=== PATIENT | male | born 1950 | race Caucasian/White ===

== ENCOUNTER → 2016-10-04 | Outpatient (CLI) | payer MEDICARE, OTHER ==
[~2016-10-04] MED LIST: CIPR500T3 PO; FISH7.5C PO; MULT1TAB10 PO; TYLE650T35 PO
--- NOTE | 2016-10-04 14:20 | REP ---
MULTIPARAMETRIC PROSTATE MRI STUDY WITH PRE AND POST GADOLINIUM IMAGING: TECHNIQUE: Using a phased array surface coil, small field of view imaging was acquired using T2-weighted scans in the axial, coronal, and sagittal imaging planes. Small field of view diffusion-weighted sequences are acquired. Small field of view axial T1-weighted scans are acquired dynamically after the intravenous administration of 15 mL of gadolinium. Using a large field of view, the entire pelvis to the level of the aortic bifurcation was imaged using pre-contrast axial T1 and post-contrast axial T1 fat-saturation images. HISTORY: Elevated prostate-specific antigen. Image quality is satisfactory although there is some image degradation on the diffusion weighted sequences. There is no evidence of pelvic adenopathy. No suspicious bone lesions are seen. Prostate measures 6.1 x 4.4 x 3.9 cm for a total volume of 53.2 mL. There are findings compatible with benign prostatic hypertrophy. Seminal vesicles appear unremarkable. Four areas of abnormal signal intensity and enhancement are identified as regions of interest. First in the left transitional zone extending from the base of the apex there is an area of type III enhancement with heterogeneous nonspecific signal on T2-weighted images and diffusion weighted images. There area measures 1.8 x 0.6 x 2.0 cm with a total volume of 1.79 mL. Overall level of suspicion is 3 out of 5 with chemically significant cancer equivocal. Second in the right transitional zone extending from the base to the apex is an area of type III enhancement with heterogeneous significant on both T2 and diffusion weighted images. The area measures 1.8 x 1.1 x 2.6 cm for a total volume of 2.70 mL. Overall level of suspicion is 3 out of 5 with clinically significant cancer equivocal. Third in the left mid and basilar posterior transitional zone is a geographic area of T2 low signal. There is predominantly type I enhancement in this region. The area measures 1.6 x 0.6 x 1.6 cm for a total volume of 1.16 mL. Overall level of suspicion is 2 out of 5 with clinically significant cancer unlikely to be present. Finally in the right mid and basilar medial peripheral zone is a geographic area of low signal on T2-weighted images. Within this region there is type I and type II enhancement. The area measures 1.6 x 0.5 x 1.0 cm for a total volume of 1.01 mL. Overall level of suspicion is 2 out of 5 with clinically significant cancer unlikely to be present. IMPRESSION: Four areas identified as regions of interest in the prostate to be transmitted for MR ultrasound fusion utilization. Signed by Jac Gomez MD 10/04/2016 03:31 P
== END ==
LOC: M RAD 11:06
PROVIDERS: ATTEND Urology
DX: R93.8 Abnormal findings on diagnostic imaging of other specified body structures (principal); R97.20 Elevated prostate specific antigen [PSA]; N40.0 Benign prostatic hyperplasia without lower urinary tract symptoms
CPT/HCPCS: 36415; 72197; 80048; A9576

== ENCOUNTER → 2016-10-04 | Outpatient (CLI) | payer MEDICARE, OTHER ==
[2016-10-04 10:18] LABS: ANION GAP 7 MEQ/L (8-16); BLOOD UREA NITROGEN 15 MG/DL (7-18); CALCIUM LEVEL 9.1 MG/DL (8.8-10.2); CARBON DIOXIDE LEVEL 29 MEQ/L (21-32); CHLORIDE LEVEL 101 MEQ/L (98-107); CREATININE FOR GFR 1.06 MG/DL (0.70-1.30); GLOMERULAR FILTRATION RATE > 60.0 (>49); GLUCOSE, FASTING 91 MG/DL (80-110); POTASSIUM SERUM 4.2 MEQ/L (3.5-5.1); SODIUM LEVEL 137 MEQ/L (136-145)
== END ==
LOC: M LAB 08:46
PROVIDERS: ATTEND Urology
DX: N40.0 Benign prostatic hyperplasia without lower urinary tract symptoms (principal)

== ENCOUNTER → 2016-11-04 | Outpatient (CLI) | payer MEDICARE, OTHER | END | disposition home or self-care (01) | LOC: M SMT PRO 08:18 | PROVIDERS: ATTEND Urology | DX: R97.20 Elevated prostate specific antigen [PSA] (principal); Z53.09 Procedure and treatment not carried out because of other contraindication; I95.9 Hypotension, unspecified ==

== ENCOUNTER → 2016-11-18 | Outpatient (CLI) | payer MEDICARE, OTHER ==
--- NOTE | 2016-11-18 13:09 | REP ---
Prostate sonography: History: Elevated PSA. Sonographic findings: Trans rectal prostate sonography demonstrates unremarkable seminal vesicles. Prostate gland is heterogeneously enlarged with calcifications and cystic changes noted. Glandular dimensions are measured at 5.6 x 3.4 x 6.1 cm with a calculated glandular volume of 61 ml. Transrectal sonographic guidance provided to Dr. Oshea who performed trans rectal ultrasound guided needle biopsy procedure . Signed by Cristobal Olson MD 11/18/2016 12:59 P
== END | disposition home or self-care (01) ==
LOC: M SMT PRO 09:22
PROVIDERS: ATTEND Urology
DX: C61 Malignant neoplasm of prostate (principal); N42.89 Other specified disorders of prostate; N41.8 Other inflammatory diseases of prostate
CPT/HCPCS: 55700; 76872; 76942; G0416

== ENCOUNTER → 2016-12-15 | Outpatient (CLI) | payer MEDICARE, OTHER ==
--- NOTE | 2016-12-15 11:25 | REP ---
PA and lateral chest: There are no comparisons. The lung schmidt are clear. The cardiac size is normal The barrera, mediastinum, and bony thorax are unremarkable. Impression: Negative PA and lateral chest. Signed by Jac Qiu MD 12/15/2016 11:16 A
[2016-12-15 13:57] LABS: MEAN CORPUSCULAR HEMOGLOBIN 32.3 pg (27.0-33.0); MEAN CORPUSCULAR HGB CONC 33.9 g/dl (32.0-36.5); MEAN CORPUSCULAR VOLUME 95.5 fl (80.0-96.0); RED CELL DISTRIBUTION WIDTH 12.8 % (11.5-14.5); WHITE BLOOD COUNT 7.5 10^3/uL (4.0-10.0)
[2016-12-15 14:11] LABS: INR 0.99
[2016-12-15 14:35] LABS: ANION GAP 4 MEQ/L (8-16); BLOOD UREA NITROGEN 14 MG/DL (7-18); CALCIUM LEVEL 8.9 MG/DL (8.8-10.2); CARBON DIOXIDE LEVEL 33 MEQ/L (21-32); CHLORIDE LEVEL 103 MEQ/L (98-107); CREATININE FOR GFR 1.04 MG/DL (0.70-1.30); GLOMERULAR FILTRATION RATE > 60.0 (>49); GLUCOSE, FASTING 85 MG/DL (80-110); POTASSIUM SERUM 5.1 MEQ/L (3.5-5.1); SODIUM LEVEL 140 MEQ/L (136-145)
== END ==
LOC: M SMT 10:49
PROVIDERS: ATTEND Urology
DX: C61 Malignant neoplasm of prostate (principal); Z79.899 Other long term (current) drug therapy

== ENCOUNTER → 2016-12-20 | Outpatient (REF) | payer MEDICARE, OTHER ==
[2016-12-21 14:51] LABS: THYROID PEROXIDASE ANTIBODY < 28.0 U/ML (<60.0)
== END ==
LOC: M LAB REF 12:27
PROVIDERS: ATTEND Internal Medicine
DX: E03.9 Hypothyroidism, unspecified (principal)

== ENCOUNTER 2017-01-10 06:01 | Inpatient (IN) | payer MEDICARE, OTHER ==
--- NOTE | 2017-01-02 19:26 | CR ---
DATE OF CONSULTATION: 01/02/2017 CONSULTATION REPORT FOR: Dr. Abdullahi Oshea REASON FOR CONSULTATION: For surgery scheduled 01/10/2017 at [facility] ([facility]) robotic prostatectomy. Dear Dr. Oshea, Thank you for asking me to see Mr. Sanjay Liao in consultation prior to his robotic prostatectomy scheduled 01/10/2017. As you know, Mr. Liao is a 66-year-old gentleman who has enjoyed good health except for recent diagnosis of prostate cancer. The patient had had an elevated prostate-specific antigen (PSA) and approximately five years ago, he had biopsies which were negative. On establishment with me in the spring, his PSA was again elevated. He was referred to urology. Imaging was done. Biopsies were done. One out 24 was positive for [place] grade 7 prostate cancer. The patient is ready to move forward with surgery. He notes that he had hypertension before his first attempt to have biopsies. He admits that he was anxious at that time as he had had a bad experience with his biopsies five years ago. He also admits that he had not hydrated or eaten anything the morning of the biopsies. The patient has known history of osteoarthritis (OA), degenerative joint disease (DJD) with neck stiffness. He worked as a chiropractor in the past and self-manipulates himself at this time with good results. The patient has extensive sun damage to the skin. He follows with dermatology. He has not had any recent malignancies. The patient is physically very active, exercising by walking at least two miles a day. He has been increasing more recently to be strong and ready for surgery. The patient otherwise denies any fevers or chills, chest pain or shortness of breath. PAST MEDICAL HISTORY: 1. Elevated prostate-specific antigen (PSA), negative biopsies in 2012. 2. Hyperlipidemia. 3. Seborrheic keratosis. 4. Actinic keratosis. 5. Status post bilateral cataract extractions. 6. Subclinical hypothyroidism 2016. 7. Chronic renal insufficiency (CRI) III. 8. Colonic polyps, due for colonoscopy in 2017. 9. Pilonidal cyst surgery. MEDICATIONS: - fish oil 1000 mg daily - multivitamin daily - flaxseed oil 1000 mg daily ALLERGIES: None. SOCIAL HISTORY: He is retired. 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 Never smoked. One beer a day. Exercises regularly. FAMILY HISTORY: Father at 93, had hypertension and diabetes. Mother at 80 and had arthritis. The patient's brother had diverticulitis and required a colostomy. PHYSICAL EXAMINATION: No acute distress. VITAL SIGNS: Weight 171 with a body mass index (BMI) of 24.5. Blood pressure 108/64 with a heart rate of 61. His oxygen saturation is 97%. HEENT: His head is normocephalic. Pupils are equally reactive to light. Conjunctivae are not injected. Sclerae anicteric. Vision grossly normal. He wears eye glasses. His tongue is midline. NECK: Supple. No thyromegaly, jugular venous distention (JVD), carotid bruits, cervical lymphadenopathy. RESPIRATORY: Clear to auscultation, resonant to percussion. CARDIOVASCULAR: Regular rate and rhythm. No murmur, rub, or gallop. ABDOMEN: Normoactive bowel sounds, soft, nontender. GENITOURINARY: Deferred. EXTREMITIES: Some early osteoarthritis (OA) changes of the distal interphalangeal joint (DIP). DERMATOLOGIC: Extensive sun damage with diffuse seborrheic keratosis and moles. NEUROLOGIC: Alert and oriented. Cranial nerves II-XII intact. LABORATORY DATA: In my office 12/20/2016, TSH was 6.97 with a free T4 of 0.87, negative thyroid antibodies. On 10/04/2016 in my office, he had normal metabolic profile. On 08/31/2016, the patient had a total cholesterol of 219 with an LDL of 152. On 02/22/2017, the patient had a normal CBC. EKG today in my office shows normal sinus rhythm, rate of 61, axis of 41, normal AK, QRS, QTc interval, normal R wave progression, early repolarization changes unchanged from previous EKG 02/14/2014. LABORATORY DATA FROM [facility]: 12/15/2016 chest x-ray shows no acute cardiopulmonary disease. From 12/15/2016, UA negative. PT, INR normal. Metabolic profile normal. CBC normal. IMPRESSION: Mr. Sanjya Liao is a 66-year-old gentleman with cardiovascular risk factors positive only for age and mild hyperlipidemia, has no signs or symptoms indicative of cardiovascular ischemia and is felt to be at low risk for cardiovascular complications which can be further minimized by the followin. Hypothyroid, subclinical. Continue to monitor. Recheck as scheduled at the end of February 2017. 2. Hyperlipidemia. He will hold his fish oil and flaxseed 7-10 days before surgical intervention. 3. Chronic renal insufficiency (CRI) III, resolved. Continue healthy diet and exercise. 4. Colonic polyps, due for colonoscopy in 2017. We will delay until completely recovered from surgery and treatments. Thank you very much for this consultation. Please call with questions or concerns.
[~2017-01-10] VITALS: Ht 177.8 cm; Wt 76.7 kg
[2017-01-10] VITALS (7 sets, daily range): BP systolic 116–152; BP diastolic 51–66
[~2017-01-10 06:01] MED LIST changes: -CIPR500T3 PO; -TYLE650T35 PO
[2017-01-10] MEDS ORDERED: LR 1,000 ML IV ONE (06:15)
--- NOTE | 2017-01-10 07:16 | HPE ---
DATE OF ADMISSION: 01/10/2017 HISTORY OF PRESENT ILLNESS: Mr. Liao is a 66-year-old male patient that had an MRI fusion guided prostate biopsy that showed a pathology of a Saman 7 (3+4) in one of the biopsies. DELILAH score is 10. He would like to have therapy for his prostate cancer. CURRENT MEDICATIONS: - multivitamin daily - fish oil 100 mg capsule twice a day - Zhanna-Q two capsules daily PAST MEDICAL HISTORY: Only significant for an elevated PSA. No prostate cancer. PAST SURGICAL HISTORY: 1. Vasectomy. 2. Pilonidal cyst removal. 3. Right knee arthroscopy. 4. MRI fusion biopsy. FAMILY MEDICAL HISTORY: Father is due to congestive heart failure (CHF). Mother is alive and healthy. SOCIAL HISTORY: He does not smoke. Caffeine - one to two cups a day. Exercises daily. He is . ALLERGIES: No known drug allergies. REVIEW OF SYSTEMS: We have reviewed the 12 reviews of system and there are no other symptomatology other than the history of present illness. His vital signs are stable. Weight is 167 pounds. Height 70 inches. PHYSICAL EXAMINATION: He is alert and oriented times three. Skin: Shows no suspicious moles, lesions or wounds. HEENT: Normal. Thorax/Lungs: Respiration movements are symmetrical. No rhonchi, wheezes. No pain at palpation of the thorax. Heart: Strong and regular, no murmurs. Abdomen: Soft, nontender, positive bowel sounds. No flank pain. Extremities: No edema, clubbing or cyanosis. ASSESSMENT: Prostate cancer. 66-year-old male patient who has a [id number] prostate cancer with intermediate risk of a Saman score 7 (3+4) in one biopsy. His 4Kscore also showed an intermediate risk for prostate cancer. We have explained to him about the different treatment options, such as surgery, radical prostatectomy, external beam radiation and seeds. The patient would like to undergo a robotic-assisted radical prostatectomy. He is aware of the different complications related to this type of procedure which are not limited to the following: pain, infection, sepsis, rectal injury, bowel injury, major vessel injury, clots in legs, clots in heart, stroke, incontinence, and erectile dysfunction. The patient is aware of this and has signed the consent form. He is scheduled for surgery on January 10.
[2017-01-10] MEDS ORDERED: METHYLENE BLUE 0.5% (5MG/ML) 10 ML AMP (PROVAYBLUE)(Q9968 PER 1MG) As Ordered ONE (07:19)
[2017-01-10] MEDS ORDERED: GLYCOPYRROLATE INJ 0.2 MG/ML 2 ML VIAL As Ordered ONE (07:23)
[2017-01-10] MEDS ORDERED: ONDANSETRON 4MG/2ML VIAL (J2405) As Ordered ONE (07:23)
[2017-01-10] MEDS ORDERED: NEOSTIGMINE 10 MG/10 ML VIAL (J2710) As Ordered ONE (07:23)
[2017-01-10] MEDS ORDERED: PROPOFOL 200 MG/20 ML VIAL As Ordered ONE (07:23)
[2017-01-10] MEDS ORDERED: dexameTHASONE 4 MG/ML 1ML VIAL (J1100) As Ordered ONE (07:23)
[2017-01-10] MEDS ORDERED: HYDROmorphone HCL 2 MG/ML 1ML VIAL (J1170) As Ordered ONE (07:23)
[2017-01-10] MEDS ORDERED: ROCURONIUM BROMIDE 50 MG/5 ML VIAL/SYRINGE As Ordered ONE (07:23)
[2017-01-10] MEDS ORDERED: MIDAZOLAM INJ 2 MG/2 ML VIAL (J2250) As Ordered ONE (07:24)
[2017-01-10] MEDS ORDERED: fentaNYL 100 MCG/2 ML INJECTION (J3010) As Ordered ONE (07:24)
[2017-01-10] MEDS ORDERED: MEPERIDINE INJ 25 MG/ML VIAL (J2175) IV PRN (11:30)
[2017-01-10] MEDS ORDERED: PERCOCET 5MG/325MG TAB PO PRN (11:30)
[2017-01-10] MEDS ORDERED: ONDANSETRON 4MG/2ML VIAL (J2405) IV PRN ×2 (11:30)
[2017-01-10] MEDS ORDERED: LR 1,000 ML IV SCH (11:30)
[2017-01-10] MEDS ORDERED: oxyCODONE 5MG TAB PO PRN (11:30)
[2017-01-10] MEDS ORDERED: fentaNYL 100 MCG/2 ML INJECTION (J3010) IV PRN (11:30)
[2017-01-10] MEDS ORDERED: MORPHINE 2 MG/ML 1ML SYRINGE IV PRN (11:45)
[2017-01-10 11:55] LABS: MEAN CORPUSCULAR HEMOGLOBIN 32.8 pg (27.0-33.0); MEAN CORPUSCULAR HGB CONC 34.4 g/dl (32.0-36.5); MEAN CORPUSCULAR VOLUME 95.6 fl (80.0-96.0); PLATELET COUNT, AUTOMATED 179 10^3/uL (150-450); RED CELL DISTRIBUTION WIDTH 12.6 % (11.5-14.5)
[2017-01-10 12:17] LABS: ANION GAP 6 MEQ/L (8-16); BLOOD UREA NITROGEN 16 MG/DL (7-18); CALCIUM LEVEL 8.6 MG/DL (8.8-10.2); CARBON DIOXIDE LEVEL 28 MEQ/L (21-32); CHLORIDE LEVEL 103 MEQ/L (98-107); CREATININE FOR GFR 1.16 MG/DL (0.70-1.30); GLOMERULAR FILTRATION RATE > 60.0 (>49); GLUCOSE, FASTING 127 MG/DL (80-110); POTASSIUM SERUM 4.9 MEQ/L (3.5-5.1); SODIUM LEVEL 137 MEQ/L (136-145)
[2017-01-10] MEDS ORDERED: MORPHINE 4 MG/ML 1ML SYRINGE IV PRN (12:46)
[2017-01-10] MEDS: KETOROLAC 30 MG/ML VIAL (J1885) IV SCH ×2 (13:57→21:21)
[2017-01-10] MEDS: ACETAMINOPHEN 650MG ER TAB (TYLENOL ARTHRITIS) PO SCH ×2 (13:57→21:21)
[2017-01-10] MEDS: PANTOPRAZOLE 40MG INJ (PROTONIX) (C9113) IV SCH (13:57)
[2017-01-10] MEDS: KCL 20MEQ IN D5/0.45NS 1000ML 1,000 ML IV SCH ×2 (13:58→21:22)
[2017-01-10] MEDS: CIPROFLOXACIN 500 MG TAB PO SCH (17:52)
[2017-01-11 02:00] VITALS: BP 109/57
[2017-01-11] MEDS: ACETAMINOPHEN 650MG ER TAB (TYLENOL ARTHRITIS) PO SCH ×2 (05:49→14:47)
[2017-01-11] MEDS: CIPROFLOXACIN 500 MG TAB PO SCH (05:50)
[2017-01-11] MEDS: KETOROLAC 30 MG/ML VIAL (J1885) IV SCH ×2 (05:51→14:47)
[2017-01-11 06:00] VITALS: BP 129/69
[2017-01-11 06:31] LABS: MEAN CORPUSCULAR HEMOGLOBIN 32.2 pg (27.0-33.0); MEAN CORPUSCULAR HGB CONC 34.6 g/dl (32.0-36.5); MEAN CORPUSCULAR VOLUME 92.9 fl (80.0-96.0); PLATELET COUNT, AUTOMATED 163 10^3/uL (150-450); RED CELL DISTRIBUTION WIDTH 12.5 % (11.5-14.5); WHITE BLOOD COUNT 10.9 10^3/uL (4.0-10.0)
[2017-01-11 06:59] LABS: ANION GAP 8 MEQ/L (8-16); BLOOD UREA NITROGEN 14 MG/DL (7-18); CALCIUM LEVEL 8.2 MG/DL (8.8-10.2); CARBON DIOXIDE LEVEL 27 MEQ/L (21-32); CHLORIDE LEVEL 102 MEQ/L (98-107); CREATININE FOR GFR 0.98 MG/DL (0.70-1.30); GLOMERULAR FILTRATION RATE > 60.0 (>49); GLUCOSE, FASTING 110 MG/DL (80-110); POTASSIUM SERUM 3.8 MEQ/L (3.5-5.1); SODIUM LEVEL 137 MEQ/L (136-145)
[2017-01-11] MEDS: KCL 20MEQ IN D5/0.45NS 1000ML 1,000 ML IV SCH (08:00)
[2017-01-11] MEDS: PANTOPRAZOLE 40MG INJ (PROTONIX) (C9113) IV SCH (08:04)
--- NOTE | 2017-01-11 14:03 | RO ---
DATE OF PROCEDURE: 01/10/2017 A 66-year-old male patient. PREOPERATIVE DIAGNOSIS: Prostate cancer. POSTOPERATIVE DIAGNOSIS: Prostate cancer. SURGERY PERFORMED: Robotic-assisted radical prostatectomy. SURGEON: Abdullahi Oshea MD MARINE DIESEL MECHANIC: VENITA Lee ESTIMATED BLOOD LOSS: 25 mL. ANESTHESIA: General. COMPLICATIONS: None. HISTORY OF PRESENT ILLNESS: This is a 66-year-old male patient with a clinical stage [id number] prostate cancer, Hitchcock 7, 3+4, and one positive biopsy out of twelve. The patient has consented for a robotic-assisted radical prostatectomy. For this reason, he is having the surgery done today. PROCEDURE DESCRIPTION: In a patient under general anesthesia in supine modified low lithotomy position, after prepping and draping the area of concern, which included the entire genitalia and abdomen, we started by placing an orogastric tube to drain the gastric content and a Regan catheter #[id number], inflated the balloon to 10 mL to drain the bladder. We then proceeded to actually place the patient in a steep Trendelenburg position and did an incision in the midline infraumbilically for about 2 cm vertically. Through this incision, we opened the Retzius space; and with finger dissection, we dissected further the Retzius space. We then placed a balloon space maker, inflated the balloon to actually distend and dissect the Retzius space completely. We then took the space maker balloon and then placed a trocar balloon and inflated the balloon to 40 mL. Through this optic port trocar, we actually passed CO2 to create a working space in the extraperitoneal approach. We placed a #0 handheld robotic-assisted camera to assist in placement of the other ports. The other ports were placed in a fan-shape manner, two 8-mm metallic trocars placed on the right side of the patient 8 cm away from each other and two other trocars placed on the left side of the patient in a fan- shape manner. A 12-mm VersaStep in the midclavicular line and 8 cm away from this one an 8-mm metallic trocar in the anterior axillary line. We then proceeded to dock the robot. On the left arm, we used monopolar scissors, and on the right arm, so we used bipolar PK and a ProGrasp. We then proceeded to actually dissect periprostatic fat and take it off of the prostate, identify the endopelvic fascia and opened the endopelvic fascia from base to apex. We then cut the puboprostatic ligaments and then changed our scissors on the bipolar PK for two needle holders and secured the dorsal vein complex with a CT1 needle and a 0 Vicryl times two. Once this dorsal vein complex was secured, with monopolar scissors, we cut and opened the anterior bladder neck and then deflated the balloon and grabbed the Regan with the third arm and put into traction the prostate anteriorly. This placed into traction the posterior bladder neck. We incised the posterior bladder neck and the posterior detrusor muscle. Once we did this, we landed in the vas deferens and seminal vesicles. We dissected both vas deferens and cut them; and with the third arm, we grabbed them and pulled them anteriorly, this placed into traction, the seminal vesicles. We dissected both left and right seminal vesicles and ligated with Hem-o-loks the seminal vesicle arteries. We then proceeded to grab with the third arm the vas deferens and seminal vesicles tractionning them anteriorly with the third arm. This placed into traction, the posterior Denonvilliers fascia. With monopolar scissors, we incised the posterior Denonvilliers fascia and the posterior Denonvilliers fascia from the prostate with blunt dissection from base to apex. Once this was carried out, with extra-large Hem-o-loks, we secured the prostatic pedicles times two on the left and times two on the right. We then mobilized the prostate completely in an intrafascial approach and dissected the prostate from base to apex. Once the prostate was attached to the dorsal vein complex and only the urethra, with monopolar scissors, we cut the dorsal vein complex and cut the urethra. We then placed the prostate into a 10-mm Endo Catch bag, as well as the periprostatic fat. We then proceeded to reconstruct the posterior Denonvilliers fascia by using a 3-0 V-Loc in a running fashion and then did our ureterovesical anastomosis using double-armed double-needle absorbable barbed suture cold Quill 2-0. We started at 6 o'clock in the bladder neck, outside-in and inside-out in the urethra running it across and tying the knot in the middle. Prior to closing the bladder, we placed a 20-mL Regan catheter and inflated the balloon to 20 mL. We then proceeded to actually take all the needles out and took the third arm out and passed a #15 round drain, Niraj-Ram (JA) drain, which was placed to bulb suction. We then took all the instruments out, undock the robot, took all the trocars out , and extract the specimen in the Endo Catch bag though the midline incision. We then secured the drain with a nylon 3-0 to the skin and place the drain to bulb suction. We then closed the incision of the optiport in the midline with a UR6 0 Vicryl in running fashion and closed every single incision of the skin with 4-0 Monocryl subcuticular stitches. We applied Mastisol, Steri-Strips, Telfa, and Tegaderm on top of each incision site. The patient will pass through recovery and then to the floor. He will have a Regan catheter to gravity 20-Tajik with the balloon inflated to 20 mL and a JA drain to bulb suction. Once he is tolerating a regular diet and ambulating very well, he will be discharged home. Followup at [facility] between 7 and 10 days. There were no complications of surgery. Estimated blood loss (EBL) was 25 mL. MTDD
[2017-01-11] MEDS ORDERED: TYLE650T35 PO (16:19)
[2017-01-11] MEDS ORDERED: CIPR500T3 PO (16:19)
--- NOTE | 2017-01-12 11:51 | DSES ---
DATE OF ADMISSION: 01/10/2017 DATE OF DISCHARGE: 01/11/2017 ADMITTING ATTENDING: Dr. Abdullahi Oshea DISCHARGE ATTENDING: Dr. Abdullahi Oshea SURGERY PERFORMED BY: Dr. Abdullahi Oshea SURGERY PERFORMED ON: 01/10/2017 SURGERY PERFORMED: Robotic assisted radical prostatectomy. COMPLICATIONS: None. SURGEON: Dr. Abdullahi Oshea HISTORY OF PRESENT ILLNESS: This is a 66-year-old male patient that on 01/10/2017 had a robotic assisted radical prostatectomy due to prostate cancer. Clinical stage CT1c Nx Mx, Saman 7 (3+4). The patient consented for this procedure and this was carried out on 01/10/2017 without complication. After this procedure, he was admitted to the hospital. HOSPITALIZATION COURSE: The patient did very well. By postoperative day #1, he was tolerating a regular diet, ambulating very well, pain was controlled with oral pain medications. Urine output was clear and adequate. He was afebrile and hemodynamically stable. No nausea. No vomiting. JA output was very minimal, 30 mL per shift. For this reason, he requested to go home and we agreed upon this. He will go home with the following indications: - ciprofloxacin one tablet by mouth 100 mg twice a day for 10 days - Tylenol 650 mg one tablet by mouth every 8 hours as needed for pain He cannot do heavy weight lifting above 20 pounds. He can followup at [facility] center in 7 to 10 days for removal of the Regan catheter. His pathology has showed a clinical stage CT2c Nx Mx prostate cancer, Saman 7 (4+3). There is a very microscopic R1 margin. We will follow the PSA at 1 month and every 3 months for the first three years and then every 6 months between years 3 and 5. In any case, if the PSA goes above 0.2, at that moment in time we will actually give radiation therapy to the prostate and pelvis.
== END 2017-01-11 17:50 | disposition home or self-care (01) | DRG 708 ==
LOC: M OR 06:01 → M MS5PR 12:00
PROVIDERS: ADMIT Urology; ATTEND Urology
PROC: 0VB34ZZ Excision of Bilateral Seminal Vesicles, Percutaneous Endoscopic Approach (ICD-10-PCS; 2017-01-10)
PROC: 8E0W4CZ Robotic Assisted Procedure of Trunk Region, Percutaneous Endoscopic Approach (ICD-10-PCS; 2017-01-10)
PROC: 0VT04ZZ Resection of Prostate, Percutaneous Endoscopic Approach (ICD-10-PCS; principal; 2017-01-10 07:30)
DX: C61 Malignant neoplasm of prostate (principal); E78.5 Hyperlipidemia, unspecified; Z79.899 Other long term (current) drug therapy; Z98.52 Vasectomy status

== ENCOUNTER → 2017-01-24 | Outpatient (REF) | payer MEDICARE, OTHER ==
[~2017-01-24] MED LIST changes: +CIPR500T3 PO; +TYLE650T35 PO
== END ==
LOC: M SMT 14:40
PROVIDERS: ATTEND Nurse Practitioner Women's Health
DX: C61 Malignant neoplasm of prostate (principal)

== ENCOUNTER → 2017-02-08 | Outpatient (CLI) | payer MEDICARE, OTHER | LOC: M SMT 10:11 | PROVIDERS: ATTEND Nurse Practitioner Women's Health | DX: C61 Malignant neoplasm of prostate (principal) ==

== ENCOUNTER → 2017-02-15 | Outpatient (REF) | payer MEDICARE, OTHER | LOC: M SMT 13:03 | PROVIDERS: ATTEND Urology | DX: Z85.46 Personal history of malignant neoplasm of prostate (principal); Z79.899 Other long term (current) drug therapy | CPT/HCPCS: 81001; 87086; G0463 ==

== ENCOUNTER → 2017-04-21 | Outpatient (REF) | payer MEDICARE, OTHER ==
[2017-04-21 18:41] LABS: APPEARANCE, URINE HAZY (CLEAR); BACTERIA, URINE AUTO NEGATIVE (NEGATIVE); BILIRUBIN, URINE AUTO NEGATIVE (NEGATIVE); BLOOD, URINE BLOOD NEGATIVE (NEGATIVE); COLOR, URINE YELLOW (YELLOW); GLUCOSE, URINE (UA) AUTO NEGATIVE (NEGATIVE); KETONE, URINE AUTO NEGATIVE (NEGATIVE); LEUKOCYTE ESTERASE, URINE AUTO TRACE (NEGATIVE); MUCUS, URINE SMALL (NEGATIVE); NITRITE, URINE AUTO NEGATIVE (NEGATIVE); PROTEIN, URINE AUTO NEGATIVE (NEGATIVE); RBC, URINE AUTO 2 /HPF (0-3); SPECIFIC GRAVITY URINE AUTO 1.023 (1.002-1.035); SQUAMOUS EPITHELIAL CELL UR AU 0 /HPF (0-6); UROBILINOGEN, URINE AUTO 0.2 mg/dL (0.0-2.0); WBC, URINE AUTO 4 /HPF (0-3)
== END ==
LOC: M SMT 17:13
DX: R35.0 Frequency of micturition (principal)
CPT/HCPCS: 81001

== ENCOUNTER → 2017-05-05 | Outpatient (CLI) | payer MEDICARE, OTHER ==
[2017-05-05 14:23] LABS: PROSTATIC SPECIFIC AG MONITOR 0.03 NG/ML (< 4.0)
== END ==
LOC: M SMT 09:57
DX: Z85.46 Personal history of malignant neoplasm of prostate (principal)
CPT/HCPCS: 84153

== ENCOUNTER 2017-08-01 12:50 | Day surgery (SDC) | payer MEDICARE, OTHER ==
[2017-08-01] MEDS ORDERED: LR 1,000 ML IV (13:00)
[2017-08-01] MEDS ORDERED: PROPOFOL 200 MG/20 ML VIAL As Ordered ×3 (13:11→15:28)
[2017-08-01] MEDS ORDERED: LIDOCAINE 2% INJ 100 MG/5 ML SDV (FOR ANES.) As Ordered (13:11)
== END 2017-08-01 15:58 | disposition home or self-care (01) ==
LOC: M OPP 12:50
DX: Z12.11 Encounter for screening for malignant neoplasm of colon (principal); Z86.010 Personal history of colon polyps; Z85.46 Personal history of malignant neoplasm of prostate; E78.5 Hyperlipidemia, unspecified
CPT/HCPCS: G0105

== ENCOUNTER → 2017-08-10 | Outpatient (CLI) | payer MEDICARE, OTHER ==
[2017-08-10 14:26] LABS: PROSTATIC SPECIFIC AG MONITOR 0.04 NG/ML (< 4.0)
== END ==
LOC: M SMT 10:01
DX: Z85.46 Personal history of malignant neoplasm of prostate (principal)
CPT/HCPCS: 84153

== ENCOUNTER → 2017-11-16 | Outpatient (CLI) | payer MEDICARE, OTHER ==
[2017-11-16 18:36] LABS: PROSTATIC SPECIFIC AG MONITOR 0.04 NG/ML (< 4.0)
== END ==
LOC: M SMT 11:05
DX: Z85.46 Personal history of malignant neoplasm of prostate (principal)
CPT/HCPCS: 84153

== ENCOUNTER → 2018-02-19 | Outpatient (CLI) | payer MEDICARE, OTHER ==
[2018-02-19 13:31] LABS: PROSTATIC SPECIFIC AG MONITOR < 0.0 NG/ML (< 4.0)
== END ==
LOC: M SMT 11:27
DX: Z85.46 Personal history of malignant neoplasm of prostate (principal)
CPT/HCPCS: 84153

== ENCOUNTER → 2018-05-22 | Outpatient (CLI) | payer MEDICARE, OTHER ==
[~2018-05-22] MED LIST changes: +FLAX10002 PO
== END ==
LOC: M SMT 11:06
PROVIDERS: ATTEND Nurse Practitioner Women's Health
DX: Z85.46 Personal history of malignant neoplasm of prostate (principal)

== ENCOUNTER → 2018-08-27 | Outpatient (CLI) | payer MEDICARE, OTHER | LOC: M SMT 09:35 | PROVIDERS: ATTEND Nurse Practitioner Women's Health | DX: Z85.46 Personal history of malignant neoplasm of prostate (principal) ==

== ENCOUNTER → 2018-08-29 | Outpatient (REF) | payer MEDICARE, OTHER | LOC: M LAB REF 12:34 | PROVIDERS: ATTEND Internal Medicine | DX: M19.90 Unspecified osteoarthritis, unspecified site (principal) ==

== ENCOUNTER → 2018-12-03 | Outpatient (CLI) | payer MEDICARE, OTHER | LOC: M SMT 10:27 | PROVIDERS: ATTEND Nurse Practitioner Women's Health | DX: Z85.46 Personal history of malignant neoplasm of prostate (principal) ==

== ENCOUNTER → 2019-03-05 | Outpatient (CLI) | payer MEDICARE, OTHER | LOC: M PLALAB 11:10 | PROVIDERS: ATTEND Urology | DX: C61 Malignant neoplasm of prostate (principal) ==

== ENCOUNTER → 2019-06-04 | Outpatient (REF) | payer MEDICARE, OTHER | LOC: M LABSMT 15:45 | PROVIDERS: ATTEND Urology | DX: N40.0 Benign prostatic hyperplasia without lower urinary tract symptoms (principal) ==

== ENCOUNTER → 2019-12-17 | Outpatient (REF) | payer MEDICARE, OTHER ==
[~2019-12-17] MED LIST changes: +ACET650T61 PO; -TYLE650T35 PO
== END ==
LOC: M PLALAB 09:30
PROVIDERS: ATTEND Urology
DX: C61 Malignant neoplasm of prostate (principal)

== ENCOUNTER → 2020-06-18 | Outpatient (REF) | payer MEDICARE, OTHER | LOC: M PLALAB 09:19 | PROVIDERS: ATTEND Urology | DX: C61 Malignant neoplasm of prostate (principal) ==

== ENCOUNTER → 2020-06-19 | Outpatient (REF) | payer MEDICARE, OTHER | LOC: M LAB REF 12:07 | PROVIDERS: ATTEND Internal Medicine | DX: M19.90 Unspecified osteoarthritis, unspecified site (principal) ==

== ENCOUNTER → 2020-12-29 | Outpatient (CLI) | payer MEDICARE, OTHER | LOC: M PLALAB 08:23 | PROVIDERS: ATTEND Urology | DX: C61 Malignant neoplasm of prostate (principal) ==

== ENCOUNTER → 2021-03-22 | Outpatient (CLI) | payer MEDICARE, OTHER | LOC: M PLALAB 13:27 | PROVIDERS: ATTEND Urology | DX: C61 Malignant neoplasm of prostate (principal) ==

== ENCOUNTER → 2021-04-02 | Outpatient (CLI) | payer MEDICARE, OTHER ==
[~2021-04-02] MED LIST changes: +LATA0.0015; +MULTTAB61 PO; +REDCAP4 PO
== END ==
LOC: M ONCR 12:52
PROVIDERS: ATTEND General Practice
DX: C61 Malignant neoplasm of prostate (principal); Z92.3 Personal history of irradiation

== ENCOUNTER → 2021-04-12 | Outpatient (RCR) | payer MEDICARE, OTHER | LOC: M ONCR 10:24 | PROVIDERS: ATTEND General Practice | DX: C61 Malignant neoplasm of prostate (principal) ==

== ENCOUNTER → 2021-05-10 | Outpatient (RCR) | payer MEDICARE, OTHER | LOC: M ONCR 04-16 14:14 | PROVIDERS: ATTEND General Practice | DX: C61 Malignant neoplasm of prostate (principal) ==

== ENCOUNTER → 2021-06-10 | Outpatient (RCR) | payer MEDICARE, OTHER | LOC: M ONCR 05-11 14:39 | PROVIDERS: ATTEND General Practice | DX: C61 Malignant neoplasm of prostate (principal) ==

== ENCOUNTER → 2021-09-03 | Outpatient (CLI) | payer MEDICARE, OTHER ==
[2021-09-03 14:06] LABS: PROSTATIC SPECIFIC AG MONITOR 0.06 NG/ML (< 4.00)
== END ==
LOC: M PLALAB 09:57
PROVIDERS: ATTEND General Practice
DX: C61 Malignant neoplasm of prostate (principal)

== ENCOUNTER → 2021-09-08 | Outpatient (CLI) | payer MEDICARE, OTHER | LOC: M ONCR 14:01 | PROVIDERS: ATTEND General Practice | DX: C61 Malignant neoplasm of prostate (principal); Z90.79 Acquired absence of other genital organ(s); Z92.3 Personal history of irradiation ==

== ENCOUNTER → 2021-12-03 | Outpatient (CLI) | payer MEDICARE, OTHER ==
[~2021-12-03] MED LIST changes: +FISH10005 PO; -FISH7.5C PO
[2021-12-03 14:31] LABS: PROSTATIC SPECIFIC AG MONITOR 0.02 NG/ML (< 4.00)
== END ==
LOC: M PLALAB 10:25
PROVIDERS: ATTEND General Practice
DX: C61 Malignant neoplasm of prostate (principal)

== ENCOUNTER → 2021-12-09 | Outpatient (CLI) | payer MEDICARE, OTHER | LOC: M ONCR 14:29 | PROVIDERS: ATTEND General Practice | DX: C61 Malignant neoplasm of prostate (principal); Z90.79 Acquired absence of other genital organ(s); Z92.3 Personal history of irradiation ==

== ENCOUNTER → 2022-04-24 | Outpatient (CLI) | payer MEDICARE, OTHER ==
[~2022-04-24] MED LIST changes: +ROSU5TAB5
== END ==
LOC: M LABSMTC 09:59
PROVIDERS: ATTEND Anesthesiology
DX: Z01.812 Encounter for preprocedural laboratory examination (principal); Z11.52 Encounter for screening for COVID-19

== ENCOUNTER → 2022-04-29 | Day surgery (SDC) | payer MEDICARE, OTHER ==
[~2022-04-29] VITALS: Ht 177.8 cm; Wt 75.7 kg
[~2022-04-29] MED LIST changes: +LIDOCAINE 2% 100MG/5ML SDV (FOR ANES.) As Ordered ONE; +NS 1,000 ML IV ONE; +propofoL 200 MG/20 ML VIAL As Ordered ONE
[2022-04-29 11:26] VITALS: BP 106/58
== END | disposition home or self-care (01) ==
LOC: M OPP 09:41
PROVIDERS: ATTEND Surgery
DX: Z12.11 Encounter for screening for malignant neoplasm of colon (principal); Z86.010 Personal history of colon polyps; K51.40 Inflammatory polyps of colon without complications; K57.30 Diverticulosis of large intestine without perforation or abscess without bleeding; E78.00 Pure hypercholesterolemia, unspecified; Z79.02 Long term (current) use of antithrombotics/antiplatelets; Z85.46 Personal history of malignant neoplasm of prostate

== ENCOUNTER → 2022-06-06 | Outpatient (CLI) | payer MEDICARE, OTHER ==
[~2022-06-06] MED LIST changes: -LIDOCAINE 2% 100MG/5ML SDV (FOR ANES.) As Ordered ONE; -NS 1,000 ML IV ONE; -propofoL 200 MG/20 ML VIAL As Ordered ONE
== END ==
LOC: M PLALAB 09:44
PROVIDERS: ATTEND Urology
DX: C61 Malignant neoplasm of prostate (principal)

== ENCOUNTER → 2022-06-17 | Outpatient (CLI) | payer MEDICARE, OTHER | LOC: M ONCR 12:55 | PROVIDERS: ATTEND General Practice | DX: C61 Malignant neoplasm of prostate (principal); Z79.899 Other long term (current) drug therapy; Z86.010 Personal history of colon polyps; Z90.79 Acquired absence of other genital organ(s); Z92.3 Personal history of irradiation ==

== ENCOUNTER 2022-10-05 08:00 | Emergency (ER) | payer MEDICARE, OTHER ==
[~2022-10-05] VITALS: Ht 177.8 cm; Wt 74.8 kg
[2022-10-05] MEDS ORDERED: AUGMENTIN 875 MG TAB PO ONE (09:15)
[2022-10-05] MEDS ORDERED: RABIES IMMUNE GLOBULIN 1500 INTERNATIONAL UNIT/5ML VIAL IM.IMMUN ONE (09:25)
[2022-10-05] MEDS ORDERED: RABIES VACCINE HUMAN 2.5 INTERNATIONAL UNITS/ML VIAL IM ONE (09:25)
[2022-10-05] MEDS ORDERED: AMOX875T2 PO (09:42)
[2022-10-05 10:40] VITALS: BP 133/77; TEMP 97; O2SAT 98
== END 2022-10-05 10:51 | disposition home or self-care (01) ==
LOC: M ED 08:00
DX: S61.230A Puncture wound without foreign body of right index finger without damage to nail, initial encounter (principal); W55.51XA Bitten by raccoon, initial encounter; Y92.009 Unspecified place in unspecified non-institutional (private) residence as the place of occurrence of the external cause; Y93.89 Activity, other specified; Y99.8 Other external cause status; Z79.899 Other long term (current) drug therapy

== ENCOUNTER 2022-10-08 06:28 | Emergency (ER) | payer MEDICARE, OTHER ==
[~2022-10-08] VITALS: Ht 177.8 cm; Wt 75.0 kg
[~2022-10-08 06:28] MED LIST changes: +AMOX875T2 PO
[2022-10-08 06:29] VITALS: BP 136/64; TEMP 96.5; O2SAT 98
[2022-10-08] MEDS ORDERED: RABIES VACCINE HUMAN 2.5 INTERNATIONAL UNITS/ML VIAL IM ONE (08:25)
== END 2022-10-08 08:49 | disposition home or self-care (01) ==
LOC: M ED 06:28
DX: Z23 Encounter for immunization (principal); Z20.3 Contact with and (suspected) exposure to rabies

== ENCOUNTER 2022-10-12 06:19 | Emergency (ER) | payer MEDICARE, OTHER ==
[~2022-10-12] VITALS: Ht 177.8 cm; Wt 75.4 kg
[2022-10-12] MEDS ORDERED: RABIES VACCINE HUMAN 2.5 INTERNATIONAL UNITS/ML VIAL IM ONE (06:45)
[2022-10-12 07:09] VITALS: BP 131/63; TEMP 97.5; O2SAT 99
== END 2022-10-12 07:06 | disposition home or self-care (01) ==
LOC: M ED 06:19
DX: Z29.14 Encounter for prophylactic rabies immune globulin (principal); E78.5 Hyperlipidemia, unspecified; Z79.899 Other long term (current) drug therapy

== ENCOUNTER 2022-10-19 06:04 | Emergency (ER) | payer MEDICARE, OTHER ==
[~2022-10-19] VITALS: Ht 177.8 cm; Wt 75.9 kg
[2022-10-19] MEDS ORDERED: RABIES VACCINE HUMAN 2.5 INTERNATIONAL UNITS/ML VIAL IM ONE (06:10)
[2022-10-19 06:18] VITALS: BP 143/69; TEMP 98.6; O2SAT 99
== END 2022-10-19 06:38 | disposition home or self-care (01) ==
LOC: M ED 06:04
DX: Z29.14 Encounter for prophylactic rabies immune globulin (principal); E78.5 Hyperlipidemia, unspecified

== ENCOUNTER → 2022-12-13 | Outpatient (CLI) | payer MEDICARE, OTHER | LOC: M PLALAB 09:03 | PROVIDERS: ATTEND General Practice | DX: C61 Malignant neoplasm of prostate (principal) ==

== ENCOUNTER → 2022-12-20 | Outpatient (CLI) | payer MEDICARE, OTHER | LOC: M ONCR 13:01 | PROVIDERS: ATTEND General Practice | DX: C61 Malignant neoplasm of prostate (principal); Z71.2 Person consulting for explanation of examination or test findings; Z90.79 Acquired absence of other genital organ(s); Z92.3 Personal history of irradiation; Z79.899 Other long term (current) drug therapy ==

== ENCOUNTER → 2023-02-14 | Outpatient (REF) | payer MEDICARE, OTHER ==
[2023-02-14 13:50] LABS: AMORPHOUS SEDIMENT MODERATE (NEGATIVE); APPEARANCE, URINE TURBID (CLEAR); BACTERIA, URINE AUTO NEGATIVE (NEGATIVE); BILIRUBIN, URINE AUTO NEGATIVE (NEGATIVE); BLOOD, URINE BLOOD 2+ (NEGATIVE); COLOR, URINE AMBER (YELLOW); GLUCOSE, URINE (UA) AUTO NEGATIVE (NEGATIVE); KETONE, URINE AUTO NEGATIVE (NEGATIVE); LEUKOCYTE ESTERASE, URINE AUTO TRACE (NEGATIVE); MUCUS, URINE LARGE (NEGATIVE); NITRITE, URINE AUTO NEGATIVE (NEGATIVE); PROTEIN, URINE AUTO 1+ mg/dL (NEGATIVE); RBC, URINE AUTO 19 /HPF (0-3); SPECIFIC GRAVITY URINE AUTO 1.028 (1.002-1.035); SQUAMOUS EPITHELIAL CELL UR AU 0 /HPF (0-6); WBC, URINE AUTO 5 /HPF (0-3)
== END ==
LOC: M LAB REF 13:12
PROVIDERS: ATTEND Internal Medicine
DX: R31.9 Hematuria, unspecified (principal)

== ENCOUNTER → 2023-03-02 | Outpatient (REF) | payer MEDICARE, OTHER ==
[2023-03-02 12:54] LABS: APPEARANCE, URINE HAZY (CLEAR); BACTERIA, URINE AUTO NEGATIVE (NEGATIVE); BILIRUBIN, URINE AUTO NEGATIVE (NEGATIVE); BLOOD, URINE BLOOD 3+ (NEGATIVE); COLOR, URINE YELLOW (YELLOW); GLUCOSE, URINE (UA) AUTO NEGATIVE (NEGATIVE); KETONE, URINE AUTO NEGATIVE (NEGATIVE); LEUKOCYTE ESTERASE, URINE AUTO NEGATIVE (NEGATIVE); MUCUS, URINE SMALL (NEGATIVE); NITRITE, URINE AUTO NEGATIVE (NEGATIVE); PROTEIN, URINE AUTO NEGATIVE (NEGATIVE); RBC, URINE AUTO 38 /HPF (0-3); SPECIFIC GRAVITY URINE AUTO 1.017 (1.002-1.035); SQUAMOUS EPITHELIAL CELL UR AU 0 /HPF (0-6); UROBILINOGEN, URINE AUTO 0.2 mg/dL (0.0-2.0); WBC, URINE AUTO 4 /HPF (0-3)
== END ==
LOC: M SMT 10:27
PROVIDERS: ATTEND Urology
DX: N39.0 Urinary tract infection, site not specified (principal)

== ENCOUNTER → 2023-03-14 | Outpatient (CLI) | payer MEDICARE, OTHER ==
[~2023-03-14] MED LIST changes: +ISOVUE-370 76% 100ML VIAL ONE
== END ==
LOC: M PLAIMG 10:32
PROVIDERS: ATTEND Urology
DX: R31.29 Other microscopic hematuria (principal)
CPT/HCPCS: 74178; Q9967

== ENCOUNTER → 2023-06-12 | Outpatient (CLI) | payer MEDICARE, OTHER ==
[~2023-06-12] MED LIST changes: -ISOVUE-370 76% 100ML VIAL ONE
== END ==
LOC: M PLALAB 07:27
PROVIDERS: ATTEND Urology
DX: C61 Malignant neoplasm of prostate (principal)

== ENCOUNTER → 2023-12-21 | Outpatient (CLI) | payer MEDICARE, OTHER ==
[~2023-12-21] MED LIST changes: +ROSU5TAB40; -ROSU5TAB5
== END ==
LOC: M PLALAB 10:10
PROVIDERS: ATTEND General Practice
DX: C61 Malignant neoplasm of prostate (principal)

== ENCOUNTER → 2024-01-03 | Outpatient (CLI) | payer MEDICARE, OTHER | LOC: M ONCR 10:59 | PROVIDERS: ATTEND General Practice | DX: C61 Malignant neoplasm of prostate (principal); N35.82 Other urethral stricture, female; Z79.899 Other long term (current) drug therapy; Z90.79 Acquired absence of other genital organ(s); Z92.3 Personal history of irradiation ==

== ENCOUNTER → 2024-06-10 | Outpatient (CLI) | payer MEDICARE, OTHER ==
[~2024-06-10] MED LIST changes: -ROSU5TAB40; +ROSU5TAB49
== END ==
LOC: M PLALAB 10:37
PROVIDERS: ATTEND Urology
DX: C61 Malignant neoplasm of prostate (principal)

== ENCOUNTER → 2024-07-24 | Outpatient (REF) | payer MEDICARE, OTHER ==
[2024-07-29 12:23] LABS: LYME TOTAL ANTIBODY CIA <= 0.90 Index (<=0.90)
== END ==
LOC: M LAB REF 18:02
PROVIDERS: ATTEND Internal Medicine
DX: Z79.899 Other long term (current) drug therapy (principal); R53.83 Other fatigue; R53.81 Other malaise

== ENCOUNTER → 2024-07-25 | Outpatient (REF) | payer MEDICARE, OTHER ==
[2024-07-25 19:02] LABS: HEPATITIS B SURFACE ANTIGEN NEGATIVE (NEGATIVE)
[2024-07-25 19:21] LABS: HEPATITIS C VIRUS ABY INDEX 0.05 INDEX (<0.8)
[2024-07-25 19:22] LABS: HEPATITIS B CORE ANTIBODY IGM NEGATIVE (NEGATIVE)
== END ==
LOC: M LAB REF 17:36
PROVIDERS: ATTEND Internal Medicine
DX: R74.01 Elevation of levels of liver transaminase levels (principal)

== ENCOUNTER → 2024-07-26 | Outpatient (CLI) | payer MEDICARE, OTHER | LOC: M PLAIMG 10:13 | PROVIDERS: ATTEND Internal Medicine | DX: R05.9 Cough, unspecified (principal) ==

== ENCOUNTER → 2024-07-29 | Outpatient (REF) | payer MEDICARE, OTHER ==
[2024-07-29 13:51] LABS: APPEARANCE, URINE HAZY (CLEAR); BACTERIA, URINE AUTO NEGATIVE (NEGATIVE); BILIRUBIN, URINE AUTO NEGATIVE (NEGATIVE); BLOOD, URINE BLOOD NEGATIVE (NEGATIVE); COLOR, URINE YELLOW (YELLOW); GLUCOSE, URINE (UA) AUTO NEGATIVE (NEGATIVE); KETONE, URINE AUTO NEGATIVE (NEGATIVE); LEUKOCYTE ESTERASE, URINE AUTO NEGATIVE (NEGATIVE); MUCUS, URINE SMALL (NEGATIVE); NITRITE, URINE AUTO NEGATIVE (NEGATIVE); PROTEIN, URINE AUTO 2+ mg/dL (NEGATIVE); RBC, URINE AUTO 0 /HPF (0-3); SPECIFIC GRAVITY URINE AUTO 1.023 (1.002-1.035); SQUAMOUS EPITHELIAL CELL UR AU 0 /HPF (0-6); WBC, URINE AUTO 1 /HPF (0-3)
== END ==
LOC: M LAB REF 13:28
PROVIDERS: ATTEND Internal Medicine
DX: N35.811 Other urethral stricture, male, meatal (principal); R53.81 Other malaise; M19.90 Unspecified osteoarthritis, unspecified site

== ENCOUNTER → 2024-08-01 | Outpatient (REF) | payer MEDICARE, OTHER | LOC: M LAB REF 11:37 | PROVIDERS: ATTEND Internal Medicine | DX: M19.90 Unspecified osteoarthritis, unspecified site (principal) ==

== ENCOUNTER → 2024-12-26 | Outpatient (CLI) | payer MEDICARE, OTHER | LOC: M PLALAB 09:27 | PROVIDERS: ATTEND General Practice | DX: C61 Malignant neoplasm of prostate (principal) ==

== ENCOUNTER → 2025-01-02 | Outpatient (CLI) | payer MEDICARE, OTHER | LOC: M ONCR 11:01 | PROVIDERS: ATTEND General Practice | DX: C61 Malignant neoplasm of prostate (principal); Z90.79 Acquired absence of other genital organ(s); Z92.3 Personal history of irradiation; Z79.899 Other long term (current) drug therapy ==

== ENCOUNTER → 2025-02-04 | Outpatient (REF) | payer MEDICARE, OTHER ==
[~2025-02-04] MED LIST changes: -FISH10005 PO; +FISH1CAP38 PO
== END ==
LOC: M LAB REF 12:00
PROVIDERS: ATTEND Internal Medicine
DX: M19.90 Unspecified osteoarthritis, unspecified site (principal)